=== PATIENT | female | born 1960 | race Caucasian/White ===

== ENCOUNTER → 2017-04-29 | Outpatient (CLI) | payer OTHER ==
--- NOTE | 2017-04-29 17:12 | DIAGNOSTIC IMAGING REPORT ---
CHEST 2 VIEWS ROUTINE CLINICAL HISTORY: Cough. COMPARISON STUDY: No previous studies for comparison. FINDINGS: Lung volumes are normal. No pneumothorax or pleural effusion is present. There is no consolidation or evidence of pulmonary edema. Cardiac size is at the upper limits of normal. IMPRESSION: No acute cardiopulmonary findings. Electronically signed by: Otis Munguia M.D. 04/29/2017 5:11 PM Dictated Date/Time: 04/29/2017 5:10 PM
== END | disposition home or self-care (01) ==
LOC: C.RAD1850 16:55
PROVIDERS: ATTEND Family Medicine
DX: R05 Cough (principal)

== ENCOUNTER → 2017-06-09 | Outpatient (CLI) | payer OTHER ==
--- NOTE | 2017-06-09 17:27 | DIAGNOSTIC IMAGING REPORT ---
ULTRASOUND RIGHT LOWER EXTREMITY VENOUS CLINICAL HISTORY: Right leg pain and swelling. COMPARISON STUDY: No priors. TECHNIQUE: Real-time, grayscale, and color Doppler sonography of the deep veins of the right lower extremity was performed from the inguinal crease to the calf. Compression and augmentation were utilized. FINDINGS: There is no sonographic evidence of deep venous thrombosis identified in the right lower extremity. The common femoral, superficial femoral, and popliteal veins are patent and normally compressible. The greater saphenous vein and the profunda femoris vein at the junction with the common femoral vein are clear. The visualized calf veins are patent. IMPRESSION: There is no sonographic evidence of deep venous thrombosis identified in the right lower extremity. Electronically signed by: Mirza Cunningham M.D. 06/09/2017 5:25 PM Dictated Date/Time: 06/09/2017 5:25 PM
== END | disposition home or self-care (01) ==
LOC: C.ULTR 16:44
PROVIDERS: ATTEND Family Medicine
DX: M79.89 Other specified soft tissue disorders (principal)

== ENCOUNTER → 2017-08-22 | Outpatient (CLI) | payer OTHER ==
--- NOTE | 2017-08-22 15:45 | DIAGNOSTIC IMAGING REPORT ---
PELVIC COMPLETE NON OB, TRANSVAG-FEMALE PELVIS CLINICAL HISTORY: 57 years-old Female presenting with RLQ DISCOMFORT, , postmenopausal.. TECHNIQUE: Real-time grayscale and color and spectral Doppler ultrasound imaging of the pelvis was performed first using a transabdominal probe and subsequently transvaginal for better characterization. COMPARISON: None. FINDINGS: Uterus: Anteverted. The uterus measures 7.9 x 4.1 x 5.1 cm. Endometrial stripe measures 16 mm in thickness. Endometrium abnormally heterogeneous and thickened. Cervix contains an anechoic avascular lesion along the posterior wall which demonstrates posterior acoustic enhancement and is likely a prominent nabothian cyst. Right adnexa: Right ovary normal. Right ovary measures 1.6 x 1.1 x 1.6 cm. Normal color Doppler flow and arterial and venous waveforms within the ovarian parenchyma. Left adnexa: Left ovary visualization limited to transabdominal evaluation. Allowing for this, the left ovary contains a hypoechoic to anechoic lesion measuring 2.2 x 1.9 x 2.2 cm, which is indeterminate. Left ovary measures 3.3 x 3.0 x 3.9 cm. Normal color Doppler flow and arterial and venous waveforms within the ovarian parenchyma. Other: No free fluid. IMPRESSION: 1. Abnormally thickened and heterogeneous endometrium for postmenopausal status. This raises concern for endometrial hyperplasia or endometrial neoplasm. Gynecologic consultation for endometrial biopsy recommended. Differential considerations include a submucosal fibroid or adenomyosis/adenomyoma though these entities should decline in the postmenopausal setting. 2. Left ovary contains a 2.2 cm hypoechoic to anechoic lesion, which may represent a cyst. This is incompletely evaluated as a patient could not tolerate transvaginal evaluation of the left adnexa. 3. No evidence of ovarian torsion. Electronically signed by: Tim Shaikh M.D. 08/22/2017 3:44 PM Dictated Date/Time: 08/22/2017 3:38 PM
== END | disposition home or self-care (01) ==
LOC: C.ULTR 14:54
PROVIDERS: ATTEND Family Medicine
DX: R10.31 Right lower quadrant pain (principal); N83.9 Noninflammatory disorder of ovary, fallopian tube and broad ligament, unspecified; R93.5 Abnormal findings on diagnostic imaging of other abdominal regions, including retroperitoneum